=== PATIENT | male | born 1980 | race Caucasian/White ===

== ENCOUNTER 2017-02-11 13:45 | Emergency (ER) | payer SELFPAY ==
[2017-02-11] MEDS ORDERED: OXYCODONE-ACETAMINOPHEN 5-325 MG TABLET PO ONE (14:22)
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
[2017-02-11] MEDS ORDERED: CEPHALEXIN 500 MG CAPSULE PO ONE (14:48)
[2017-02-11 15:08] VITALS: BP 135/72
== END 2017-02-11 15:07 | disposition home or self-care (01) ==
LOC: ER 13:45
DX: T25.222A Burn of second degree of left foot, initial encounter (principal); F17.210 Nicotine dependence, cigarettes, uncomplicated; X10.2XXA Contact with fats and cooking oils, initial encounter
CPT/HCPCS: 99283